=== PATIENT | male | born 1985 | race Caucasian/White ===

== ENCOUNTER 2017-09-13 15:36 | Emergency (ER) | payer OTHER, MEDICAID ==
[2017-09-13 15:44] VITALS: RESP 18
--- NOTE | 2017-09-13 16:29 | EDPHY ---
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 Patient states he was recently seen last week at [facility] diagnosed with bronchitis and strep throat he completed azithromycin or Z-Garo. He states he did feel better for approximately 2 days and then 3 days ago he develops symptoms again. Sinus congestion. Sore throat. Cough but nonproductive he says he wheezes every once a while. Does not smoke. Denies vomiting, denies headache or neck pain or stiff neck. Denies abdominal pain chest pain or shortness of breath. Past Medical History: Guillain-[place] syndrome, Barber's palsy Past Surgical History: Appendectomy Social History: Denies daily use drugs alcohol tobacco. Family History: Noncontributory ROS REVIEW OF SYSTEMS: A comprehensive 10 point review of systems is otherwise negative aside from elements mentioned in the history of present illness. Exam Constitutional appears well nontoxic triage nursing summary reviewed, vital signs reviewed, awake/alert. Eyes normal conjunctivae and sclera, EOMI, PERRLA. HENT posterior pharynx is erythematous but no significant exudate or swelling, uvula midline, normal inspection, atraumatic, moist mucus membranes, no epistaxis, neck supple/ no meningismus, no raccoon eyes. Respiratory no wheezing, clear to auscultation bilaterally, normal breath sounds, no respiratory distress, no wheezing. Cardiovascular rate normal, regular rhythm, no murmur, no edema, distal pulses normal. Gastrointestinal soft, non-tender, no rebound, no guarding, normal bowel sounds, no distension, no pulsatile mass. Genitourinary no CVA tenderness. Musculoskeletal no midline vertebral tenderness, full range of motion, no calf swelling, no tenderness of extremities, no meningismus, good pulses, neurovascularly intact. Skin pink, warm, & dry, no rash, skin atraumatic. Neurologic awake, alert and oriented x 3, AAOx3, moves all 4 extremities equally, motor intact, sensory intact, CN II-XII intact, normal cerebellar, normal vision, normal speech. Psychiatric normal mood/affect. Heme/Lymph/Immune no lymphadenopathy. Differential Diagnosis: Includes but is not limited to in a particular order, upper respiratory tract infection, strep pharyngitis, viral syndrome, influenza , pneumonia Medical Decision Making: Plan for this patient DuoNeb breathing treatment, rapid strep, influenza and chest x-ray two view. Re-evaluate. Re-evaluation: 1801: I did re-evaluate the patient. He does feel better after DuoNeb breathing treatment. Chest x-ray reviewed shows no focal pneumonia. I will place him again on azithromycin and albuterol inhaler. Strep test is noted be negative influenza negative. Patient understands return emergency room if he has worsening symptoms questions concerns. Vital signs are stable. Afebrile. Final diagnosis bronchitis. Source: Patient - Personal History Current Tetanus Diphtheria and Acellular Pertussis (TDAP): Yes - Medical/Surgical History Other PMH: Barber's palsy. Guillame [place] - Social History Smoking Status: Never smoked Constitutional: Initial Vital Signs Temperature (C) 37 C 09/13/17 15:39 Heart Rate 98 09/13/17 15:39 Respiratory Rate 18 09/13/17 15:39 Blood Pressure 127/90 H 09/13/17 15:39 O2 Sat (%) 95 09/13/17 15:39 O2 Delivery Mode Room Air Allergies/Adverse Reactions: erythromycin base [Erythromycin Base] Allergy (Unknown, Verified 09/13/17 15:44) Home Medications: Medication Instructions Recorded AZITHROMYCIN [Z-PACK] 250 mg PO DAILY #6 tab 09/13/17 Albuterol [Proventil Inhaler HFA 1 - 2 puffs IH Q4H #1 mdi 09/13/17 (*)] Medical Decision Making - Diagnostics Imaging Results: Imaging Impressions Chest X-Ray 09/13/17 16:33 Impression: Suspect airways disease. No pneumonia. - Data Points Laboratory Results: 09/13/17 09/13/17 Unknown 16:40 Nasal Influenza A PCR NEGATIVE FOR FLU A (NEGATIVE) Nasal Influenza B PCR NEGATIVE FOR FLU B (NEGATIVE) Group A Strep Screen NEGATIVE (NEGATIVE) Group A Strep DNA Pending Medications Given: Discontinued Medications Albuterol/Ipratropium (Duoneb) 3 ml IH EDNOW ONE Stop: 09/13/17 16:34 Last Admin: 09/13/17 16:48 Dose: 3 ml Departure - Departure Disposition: Home, Routine, Self-Care Clinical Impression: Bronchitis Condition: Good Instructions: Acute Bronchitis (ED) Additional Instructions: 1. Return emergency room if develops worsening symptoms questions or concerns. Referrals: NONE *PRIMARY CARE P,. [Primary Care Provider] - As per Instructions Prescriptions: Albuterol [Proventil Inhaler HFA (*)] 1 - 2 puffs IH Q4H #1 mdi AZITHROMYCIN [Z-PACK] 250 mg PO DAILY #6 tab
[2017-09-13] MEDS ORDERED: IPRATROPIUM/ALBUTEROL 3 ML DEYVIAL IH ONE (16:33)
[2017-09-13 16:57] LABS: STREP SCREEN RAPID NEGATIVE (NEGATIVE)
[2017-09-13 18:25] VITALS: BP 133/76; PULSE 81; TEMP 98.8; O2SAT 94
== END 2017-09-13 18:28 | disposition home or self-care (01) ==
DX: J20.9 Acute bronchitis, unspecified (principal)

== ENCOUNTER 2017-10-10 23:51 | Emergency (ER) | payer OTHER, MEDICAID ==
[2017-10-10 23:59] VITALS: BP 152/99; PULSE 82; RESP 16; TEMP 98.4; O2SAT 97
--- NOTE | 2017-10-11 00:12 | EDPHY ---
H & P Stated Complaint: flu like symptoms Time Seen by Provider: 10/10/17 23:59 HPI/ROS: Chief Complaint: Flu-like symptoms HPI: 32-year-old immunocompetent male presenting with 2 days of flu-like symptoms including mildly productive cough, muscle aches, occasional fevers and chills. Patient has not had any nausea or vomiting. He has been taking TheraFlu with minimal relief. Did not receive a flu vaccine this year. No chest pain or shortness of breath. No nausea or vomiting. No abdominal pain. He has also been alternating ibuprofen with acetaminophen, last was over 4 hr ago. He is up-to-date on his immunizations. No headache. No skin rash. No lightheadedness or fainting. Has also developed a worsening sore throat over the last 48 hr. He is able to swallow. ROS: 10 point Review of Systems is negative except as noted in the HPI. PMH: Denies Social History: No smoking, no alcohol, currently living in a homeless skilled nursing Family History: non-contributory Physical Exam: Gen: Awake, Alert, No Distress HEENT: Nose: no rhinorrhea Eyes: PERRLA, EOMI Mouth: Moist mucosa diffuse oral pharyngeal erythema without edema or exudate Neck: Supple, no JVD Chest: nontender, lungs clear to auscultation Heart: S1, S2 normal, no murmur Abd: Soft, non-tender, no guarding Back: no CVA tenderness, no midline tenderness Ext: no edema, non-tender Skin: no rash Neuro: CN II-XII intact, Sensation grossly intact, Strength 5/5 in bilateral upper and lower extremities - Personal History Current Tetanus/Diphtheria Vaccine: Yes Current Tetanus Diphtheria and Acellular Pertussis (TDAP): Yes - Medical/Surgical History Hx Asthma: No Hx Chronic Respiratory Disease: No Hx Diabetes: No Hx Cardiac Disease: No Hx Renal Disease: No Hx Cirrhosis: No Hx Alcoholism: No Hx HIV/AIDS: No Hx Splenectomy or Spleen Trauma: No Other PMH: Barber's palsy. Guillame [place] - Social History Smoking Status: Never smoked Constitutional: Initial Vital Signs Temperature (C) 36.9 C 10/10/17 23:57 Heart Rate 82 10/10/17 23:57 Respiratory Rate 16 10/10/17 23:57 Blood Pressure 152/99 H 10/10/17 23:57 O2 Sat (%) 97 12/12/17 23:57 O2 Delivery Mode Room Air Allergies/Adverse Reactions: erythromycin base [Erythromycin Base] Allergy (Unknown, Verified 09/13/17 15:44) amoxicillin Allergy (Verified 10/10/17 23:56) oxycodone Allergy (Verified 10/10/17 23:56) Home Medications: Medication Instructions Recorded NK [No Known Home Meds] 10/10/17 Medical Decision Making ED Course/Re-evaluation: Rapid strep is negative. 32-year-old male with viral upper respiratory symptoms. He is not febrile. He is not tachycardic. He is not hypotensive. He is otherwise very well appearing. Will discharge with continuing supportive treatment. Follow up with primary care physician at [facility] in 3-4 days if symptoms are not improving. - Data Points Laboratory Results: 10/11/17 10/10/17 Unknown 23:50 Group A Strep Screen NEGATIVE (NEGATIVE) Group A Strep DNA Pending Departure - Departure Disposition: Home, Routine, Self-Care Clinical Impression: Viral URI Condition: Good Instructions: Viral Syndrome (ED) Additional Instructions: Alternate acetaminophen (1000 mg) with ibuprofen (400 mg) every 4 hours as needed for fevers, chills, aches or pains. Follow up with primary care physician at [facility] in 3-4 days if symptoms are not improving. Referrals: [facility],. [Clinic] - As per Instructions
== END 2017-10-11 00:53 | disposition home or self-care (01) ==
LOC: EDUNIT#
DX: J06.9 Acute upper respiratory infection, unspecified (principal)